=== PATIENT | male | born 1985 | race Caucasian/White ===

== ENCOUNTER 2016-12-08 01:06 | Emergency (ER) | payer OTHER ==
[~2016-12-08] VITALS: Ht 193 cm; Wt 117.9 kg
[2016-12-08] MEDS ORDERED: IBUPROFEN800 M1 PO (01:14)
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
[2016-12-08 01:21] VITALS: BP 153/103
== END 2016-12-08 01:13 ==
LOC: ERH 01:06
DX: S00.83XA Contusion of other part of head, initial encounter (principal); S09.90XA Unspecified injury of head, initial encounter; Y04.8XXA Assault by other bodily force, initial encounter; Y92.238 Other place in hospital as the place of occurrence of the external cause